=== PATIENT | male | born 1995 | race Caucasian/White ===

== ENCOUNTER 2019-08-23 16:03 | Emergency (ER) | payer BC ==
[2019-08-23 16:19] VITALS: RESP 18; TEMP 98.1
[2019-08-23] MEDS ORDERED: LORazepam 1 MG TAB PO STA (17:41)
--- NOTE | 2019-08-23 17:44 | ED ---
Anxiety HPI - General Chief Complaint: Anxiety Stated Complaint: Anxiety Time Seen by Provider: 08/23/19 17:21 Source: patient, RN notes reviewed, old records reviewed Mode of arrival: ambulatory - History of Present Illness Initial Comments: This is a 23-year-old male the ER for evaluation patient admits to significant anxiety and stress, inability to sleep panic attacks 3 last 2 days. Patient having multiple family issues recent passing of his mother because of severe distress and also his girlfriend is broke up with him. He denies any illicit drugs or alcohol abuse he does take Vistaril on a regular basis for generalized anxiety states that right now is is not cutting it and not getting it done. Patient has no thoughts of self-harm or hurting someone else. No other significant complaints MD Complaint: anxiety -: days(s) Symptoms: palpitations, other (Panic attack) Place: home Previous History of Same: Yes Severity: mild Quality: intermittent, similar to prior episodes Provoking factors: emotional stress (Girlfriend broke up with), recent /illness of family member Improves With: nothing Worsens With: nothing - Related Data Home Medications: Previous Rx's Medication Instructions Recorded Diazepam [Valium] 5 mg PO Q8H PRN 3 Days #9 tab 08/23/19 Allergies/Adverse Reactions: Allergies Allergy/AdvReac Type Severity Reaction Status Date / Time No Known Allergies Allergy Verified 08/23/19 16:19 Review of Systems ROS Statement: Those systems with pertinent positive or pertinent negative responses have been documented in the HPI. ROS Other: All systems not noted in ROS Statement are negative. 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 Absent: scleral icterus, conjunctival injection, periorbital swelling ENT exam: Present: normal exam, mucous membranes moist Neck exam: Present: normal inspection. Absent: tenderness, meningismus, lymphadenopathy Respiratory exam: Present: normal lung sounds bilaterally. Absent: respiratory distress, wheezes, rales, rhonchi, stridor Cardiovascular Exam: Present: normal rhythm, tachycardia, normal heart sounds. Absent: systolic murmur, diastolic murmur, rubs, gallop, clicks GI/Abdominal exam: Present: soft, normal bowel sounds. Absent: distended, tenderness, guarding, rebound, rigid Extremities exam: Present: normal inspection, full ROM, normal capillary refill. Absent: tenderness, pedal edema, joint swelling, calf tenderness Back exam: Present: normal inspection Neurological exam: Present: alert, oriented X3, CN II-XII intact Psychiatric exam: Present: normal affect, normal mood Skin exam: Present: warm, dry, intact, normal color. Absent: rash Course Vital Signs 08/23/19 16:14 Temperature 98.1 F Pulse Rate 144 H Respiratory 18 Rate Blood Pressure 129/64 O2 Sat by Pulse 98 Oximetry - Reevaluation(s) Reevaluation #1: 08/23/19 17:43 Medical records reviewed Reevaluation #2: 08/23/19 17:59 Patient's anxiety is significantly improved Medical Decision Making - Medical Decision Making 23 male the ER for evaluation anxiety attack. Patient will be given anxiety like for discharge, follow-up with primary care next week Disposition Clinical Impression: Acute anxiety, Panic attack Disposition: HOME SELF-CARE Condition: Fair Instructions (If sedation given, give patient instructions): Generalized Anxiety Disorder (ED) Prescriptions: Diazepam [Valium] 5 mg PO Q8H PRN 3 Days #9 tab PRN Reason: Anxiety Is patient prescribed a controlled substance at d/c from ED?: Yes When asked, does pt state using other controlled substances?: No If prescribed controlled substance>3 days was MAPS reviewed?: Prescribed <3 Days Referrals: Nonstaff,Physician [Primary Care Provider] - 1-2 days
[2019-08-23 18:02] VITALS: BP 137/87; PULSE 115
== END 2019-08-23 18:02 | disposition home or self-care (01) ==
LOC: EC 16:03
DX: F41.0 Panic disorder [episodic paroxysmal anxiety] (principal); F41.9 Anxiety disorder, unspecified; R00.0 Tachycardia, unspecified; F17.200 Nicotine dependence, unspecified, uncomplicated; Z85.9 Personal history of malignant neoplasm, unspecified; Z63.0 Problems in relationship with spouse or partner; Z94.81 Bone marrow transplant status
CPT/HCPCS: 99283

== ENCOUNTER 2019-08-27 09:07 | Emergency (ER) | payer BC ==
[2019-08-27] MEDS ORDERED: ALPRAZolam 0.5 MG TAB PO STA (09:33)
[2019-08-27] MEDS ORDERED: ONDANSETRON 4 MG/2 ML VIAL IVP STA (09:33)
[2019-08-27] MEDS ORDERED: SODIUM CHLORIDE 0.9% 1,000 ML IV ONE (09:33)
--- NOTE | 2019-08-27 09:46 | ED ---
Nausea/Vomiting/Diarrhea HPI - General Chief complaint: Nausea/Vomiting/Diarrhea Stated complaint: Vomiting Time Seen by Provider: 08/27/19 09:15 Source: patient Mode of arrival: ambulatory Limitations: no limitations - History of Present Illness Initial comments: 23-year-old male with history of anxiety disorder presents emergency room for evaluation of nausea vomiting diarrhea 12 hours. Patient states that he has had nausea vomiting diarrhea since 9:30 PM last night. Patient denies any specific foods or ingested prior. Patient denies any fevers states she has had chills. Patient denies any severe abdominal pain. Denies any melena or hematochezia. Denies any emesis. Patient denies any known sick contacts. Patient states the vomiting has slowed down this morning. Patient states he does feel anxious and did not take his anti anxiety medications-5mg valium. Otherwise patient has no other complaints. Denies CP, SOB, back pain or urinary symptoms. Patient appears well on arrival. - Related Data Previous Rx's Medication Instructions Recorded Diazepam [Valium] 5 mg PO Q8H PRN 3 Days #9 tab 08/23/19 Ondansetron Odt [Zofran Odt] 4 mg PO Q8HR PRN 1 Days #3 tab 08/27/19 Allergies Allergy/AdvReac Type Severity Reaction Status Date / Time No Known Allergies Allergy Verified 08/27/19 09:19 Review of Systems ROS Statement: Those systems with pertinent positive or pertinent negative responses have been documented in the HPI. ROS Other: All systems not noted in ROS Statement are negative. 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 Eye: Pupils are equal, round and reactive to light, extra-ocular movements are intact. No nystagmus. There is normal conjunctiva bilaterally. No signs of icterus. Ears, nose, mouth and throat: There are moist mucous membranes and no oral lesions. Cardiovascular: There is a regular rate and rhythm. No murmur, rub or gallop is appreciated. Respiratory: Lungs are clear to auscultation, respirations are non-labored, breath sounds are equal. No wheezes, stridor, rales, or rhonchi. Gastrointestinal: Soft, non-distended, non-tender abdomen without masses or organomegaly noted. There is no rebound or guarding present. No CVA tenderness. Bowel sounds are unremarkable. Musculoskeletal: Normal ROM, no tenderness. Strength 5/5. Sensation intact. Radial pulses equal bilaterally 2+. Neurological: A&O x 3. CN II-XII intact grossly, There are no obvious motor or sensory deficits. Coordination appears grossly intact. Speech is normal. Skin: Skin is warm and dry and no rashes or lesions are noted. Psychiatric: [employer]. Limitations: no limitations Course Vital Signs 08/27/19 08/27/19 09:10 10:31 Temperature 98.2 F 98.0 F Pulse Rate 84 72 Respiratory 18 16 Rate Blood Pressure 119/71 132/76 O2 Sat by Pulse 98 99 Oximetry Medical Decision Making - Medical Decision Making 23-year-old male presents emergency department for evaluation of vomiting, diarrhea. began last night, denies abdominal pain. abdominal exam benign, symptoms controlled. given IVF. Patient states he has chronic anxiety with f/u tomorrow to refill valium. Given one dose of PO xanax in the ER. Patient discharged appearing well with PCP f/u. Return parameters discussed case discussed with Dr. gao. Disposition Clinical Impression: Nausea vomiting and diarrhea, Hx of anxiety disorder Disposition: HOME SELF-CARE Condition: Good Instructions (If sedation given, give patient instructions): Acute Nausea and Vomiting (ED), Acute Diarrhea (ED) Additional Instructions: Please use medication as discussed. Please follow-up with family doctor in the next 2 days. Please return to emergency room if the symptoms increase or worsen or for any other concerns. Prescriptions: Ondansetron Odt [Zofran Odt] 4 mg PO Q8HR PRN 1 Days #3 tab PRN Reason: Nausea Is patient prescribed a controlled substance at d/c from ED?: No Referrals: Nonstaff,Physician [Primary Care Provider] - 1-2 days [facility] [NON-STAFF] - 1-2 days Time of Disposition: 11:24
[2019-08-27 10:32] VITALS: BP 132/76; PULSE 72; RESP 16; TEMP 98
== END 2019-08-27 10:30 | disposition home or self-care (01) ==
LOC: EC 09:07
DX: R11.2 Nausea with vomiting, unspecified (principal); R19.7 Diarrhea, unspecified; F41.9 Anxiety disorder, unspecified; F17.200 Nicotine dependence, unspecified, uncomplicated; Z85.830 Personal history of malignant neoplasm of bone; Z94.81 Bone marrow transplant status
CPT/HCPCS: 99283; 96374; 96361; J2405